=== PATIENT | male | born 1980 | race Caucasian/White ===

== ENCOUNTER → 2020-08-18 11:03 | Outpatient (BNVA) | payer BC, SELFPAY | PROVIDERS: Visit Provider Family Medicine | DX: M19.071 Primary osteoarthritis, right ankle and foot (principal) | CPT/HCPCS: 73630 ==

== ENCOUNTER → 2021-10-19 16:36 | Outpatient (BNVA) | payer OTHER, SELFPAY | PROVIDERS: Visit Provider Family Medicine | DX: A68.9 Relapsing fever, unspecified (principal); M79.10 Myalgia, unspecified site; R34 Anuria and oliguria; L57.0 Actinic keratosis; R53.83 Other fatigue; Z76.89 Persons encountering health services in other specified circumstances | CPT/HCPCS: 80053; 80061; 82550; 84443; 85025; 85651; 86038; 86140 ==

== ENCOUNTER 2022-10-03 15:34 | Emergency (ER) | payer OTHER, SELFPAY ==
[2022-10-03 16:18] VITALS: BP 125/73; PULSE 52; RESP 16; TEMP 36.7; O2SAT 98; BMI 37.1
[2022-10-03 17:24] LABS: Hematocrit 44.7 % (42.0-52.0); Hemoglobin 15.5 g/dL (11.7-16.6); Mean Corpuscular HGB Conc 34.7 g/dL (30.0-36.0); Mean Corpuscular Hemoglobin 30.5 pg (28.0-34.0); Mean Platelet Volume 9.1 fL (7.4-10.4); Platelet Count 314 10^3/cmm (130-400); Red Blood Count 5.08 10^6/uL (4.1-5.3); Red Cell Distribution Width 12.3 % (12.1-15.1); White Blood Count 11.5 10^3/uL (4.0-10.0)
--- NOTE | 2022-10-03 17:25 | W.ED.GIBLEED ---
HPI - GI Bleed General: Chief complaint: GI Bleed Stated complaint: UC sent bleeding from rectum Time Seen by Provider: 10/03/22 16:48 History of Present Illness: 42-year-old male presents emergency room with complaint of bleeding rectal hemorrhoids. He said the hemorrhoids for over a week he had seen his primary care provider they had given some topical medications. It is continued to be irritating he now has irregular bleeding from it without straining. It had eroded through the advised him to go to the emergency room. Is not had any lightheadedness or dizziness. MD complaint: other (Hemorrhoid) Onset (ago): week(s) Pain Consistency: constant Severity: mild Relieving factors: none Associated symptoms: Denies abdominal pain, chills, easy bruising, epistaxis, fever(s), headache(s), malaise, nausea, other bleeding, poor appetite, rash, syncope, vomiting or weakness Review of Systems Const: Denies: fever(s), chills or malaise ENMT: Denies: epistaxis Card: Denies: chest pain, palpitations, irregular heart rhythm or syncope Resp: Denies: dyspnea, productive cough or non-productive cough GI: Reports: hematochezia; Denies: abdominal pain, nausea or vomiting : Denies: dysuria, urinary frequency or urinary urgency Skin/Breast: Denies: rash Neuro: Denies: headache(s) Gary/Lymph: Denies: easy bruising PFS ED PFSH: Social History Smoking and tobacco status: never smoked Alcohol intake: never Substance/Drug Use: never Physical Exam GI: OTHER: [place] rectal area at 6 o'clock position there is a irritated hemorrhoid that has eroded through and that has some oozing no active bleeding. No thrombosed hemorrhoids visualized at this time. Course Vital Signs: Vital signs: Vital Signs Temperature 98.0 F 10/03/22 16:18 Pulse Rate 52 L 10/03/22 16:18 Respiratory Rate 16 10/03/22 16:18 Blood Pressure 125/73 10/03/22 16:18 Pulse Oximetry 98 10/03/22 16:18 Oxygen Delivery Me thod Room Air 10/03/22 16:18 MDM - GI Bleed Medical Decision Making Avoid straining avoid heavy lifting. Sitz bath as needed topical hemorrhoid treatments as needed. We will have case management expedite consultation with general surgery for definitive care. Medical Records I reviewed the patient's medical records. Lab Data I reviewed the patient's lab results. 10/03/22 17:14 10/03/22 17:14 Discharge Plan Discharge Patient Disposition: Home Clinical Impression: Hemorrhoids Condition: Stable Prescriptions: No Action loratadine [Claritin] 10 mg tablet 10 mg PO DAILY dibucaine 1 % ointment 1 applic FL QID PRN (Reason: rectal discomfort) Qty: 56 0RF Discharge Orders: Discharge ED (Routine); Ordered 10/03/22 Ordered By: Mike Espinoza Referrals: Dany Chavez DO [Primary Care Provider] - Discharge Diet: Usual diet Discharge Activity: Limit activity as instructed Patient Instructions: Hemorrhoids (ED), Opioid Safety, Pain Management Activity Restrictions/Additional Instructions: Case management make arrangements for a more expedited appointment with general surgery for the hemorrhoid. Sitz bath's and topical medication to your previously prescribed can be helpful. Avoid heavy lifting or straining. Also recommend starting a stool softener such as Shannan-Colace [id number] take 1 twice daily. Coding Level of Care Code ED Residential Treatment Staff for Zohreh Lazo
[2022-10-03 17:39] LABS: Alanine Aminotransferase 34 U/L (0-41); Albumin Level 4.4 g/dL (3.5-5.2); Alkaline Phosphatase 102 U/L (40-130); Anion Gap 15.8 (5-19); Aspartate Amino Transferase 20 U/L (0-40); Blood Urea Nitrogen 10 mg/dL (6-20); Calcium 8.9 mg/dL (8.5-10.5); Carbon Dioxide 22 mmol/L (22-29); Chloride 105 mmol/L (98-107); Globulin 2.7 g/dL (1.3-4.6); Glomerular Filtration Rate 124.9 mL/min (90-130); Glucose 73 mg/dL (65-115); Osmolality Calculated 286 mOsm/kg (285-295); Potassium 3.8 mmol/L (3.5-5.1); Sodium 139 mmol/L (136-145); Total Bilirubin 0.3 mg/dL (0.15-1.2); Total Protein 7.1 g/dL (6.6-8.7)
[2022-10-03 17:49] LABS: Absolute Segmented Neutrophil 6.1 10/cmm (1.6-7.1); Lymphocytes 39 %; Segmented Neutrophils 53 %; Total Cells Counted 100 (0-100)
[2022-10-03 17:50] LABS: Absolute Eosinophils 0.1 10^3/cmm (0.0-0.7); Absolute Neutrophil 6.1 10^3/cmm (1.4-6.5); Eosinophils 1 %; Lymphocytes Absolute 4.5 10^3/cmm (1.2-3.4); Monocytes Absolute 0.8 10^3/cmm (0.1-0.6); Platelet Estimate Normal (Normal)
--- NOTE | 2022-10-04 07:54 | DCPLANNER ---
Addendum entered by Asya Sanchez 11/03/22 10:22: Patient had a follow up appointment scheduled with general surgery - patient did attend appointment. Addendum entered by Asya Sanchez 10/05/22 10:37: Patient has a follow up appointment scheduled for Monday, October 24, 2022 at 8:[address] Navarrete at general surgery. Original Note: customer program manager had message to schedule a follow up appointment for patient with general surgery. customer program manager sent patients information to the front office staff at general surgery. Patients information will be printed and reviewed. Clinic will call patient with appointment information.
== END 2022-10-03 17:43 | disposition home or self-care (01) ==
PROVIDERS: Emergency Provider Family Medicine; PCP Family Medicine
DX: K64.9 Unspecified hemorrhoids (principal)
CPT/HCPCS: 80053; 85007; 85025; 99283